=== PATIENT | female | born 1980 | race Hispanic/Latino ===

== ENCOUNTER 2023-06-02 11:53 | Emergency (ER) | payer OTHER ==
[~2023-06-02] VITALS: Ht 162.6 cm; Wt 68.0 kg
[2023-06-02 13:06] VITALS: BP 147/95; PULSE 69; RESP 18
[2023-06-02] MEDS ORDERED: IBUP-2070 PO (15:07)
[2023-06-02] MEDS ORDERED: CYCL10TA16 PO (15:07)
== END 2023-06-02 15:14 | disposition home or self-care (01) ==
LOC: EDH 11:53
DX: S39.012A Strain of muscle, fascia and tendon of lower back, initial encounter (principal); Z79.899 Other long term (current) drug therapy; Z88.0 Allergy status to penicillin; V89.2XXA Person injured in unspecified motor-vehicle accident, traffic, initial encounter; Y93.I9 Activity, other involving external motion; Y92.488 Other paved roadways as the place of occurrence of the external cause; Y99.8 Other external cause status
CPT/HCPCS: 72100